=== PATIENT | female | born 1945 | race Caucasian/White ===

== ENCOUNTER 2020-12-24 10:41 | Outpatient (CLI) | payer BC | END 2020-12-24 10:42 | disposition home or self-care (01) | LOC: BICMAMMO 10:41 | PROVIDERS: ATTEND Internal Medicine | DX: Z12.31 Encounter for screening mammogram for malignant neoplasm of breast (principal) | CPT/HCPCS: 77063; 77067 ==

== ENCOUNTER 2022-10-12 07:55 | Outpatient (CLI) | payer BC | END 2022-10-12 07:56 | disposition home or self-care (01) | LOC: BICMAMMO 07:55 | PROVIDERS: ATTEND Internal Medicine | DX: Z12.31 Encounter for screening mammogram for malignant neoplasm of breast (principal) | CPT/HCPCS: 77063; 77067 ==

== ENCOUNTER 2023-10-25 08:25 | Outpatient (CLI) | payer BC | END 2023-10-25 08:26 | disposition home or self-care (01) | LOC: BICMAMMO 08:25 | PROVIDERS: ATTEND Internal Medicine | DX: Z12.31 Encounter for screening mammogram for malignant neoplasm of breast (principal); M85.851 Other specified disorders of bone density and structure, right thigh; M85.852 Other specified disorders of bone density and structure, left thigh | CPT/HCPCS: 77063; 77067; 77080 ==

== ENCOUNTER 2024-07-17 14:05 | Outpatient (CLI) | payer BC, MEDICARE | END 2024-07-17 14:06 | disposition home or self-care (01) | LOC: BICULT 14:05 | PROVIDERS: ATTEND Physician Assistant | DX: E04.2 Nontoxic multinodular goiter (principal) | CPT/HCPCS: 76536 ==

== ENCOUNTER 2024-08-13 08:01 | Emergency (ER) | payer MEDICARE, BC ==
[2024-08-13 08:36] LABS: #Basophils 0.05 10x3/uL (0.0-0.2); #Eosinophils Less than 0.03 10x3/uL (0.0-0.7); %Basophils 0.4 % (0.0-1.0); %Eosinophils 0.1 % (0.0-10.0); %Lymphocytes 8.3 % (21.0-51.0); %Monocytes 4.5 % (0.0-10.0); %Neutrophils 86.4 % (42.0-75.0); Hematocrit 42.6 % (36.0-47.0); Hemoglobin 14.4 g/dL (12.0-16.0); Mean Corpuscular HGB CONC 33.8 g/dL (32.0-36.0); Mean Corpuscular Hemoglobin 29.1 pg (27.0-31.0); Mean Corpuscular Volume 86.1 fL (78.0-98.0); Mean Platelet Volume 10.8 fL (7.4-10.4); Platelet Count 185 10x3/uL (130-400); RBC Distribution Width 12.6 % (11.5-14.5); Red Blood Cell (RBC) Count 4.95 mill/uL (4.20-5.40)
[2024-08-13] MEDS ORDERED: Famotidine/PF 20 mg/2ml Vial ONE (08:47)
[2024-08-13 09:00] LABS: Troponin I Less than 0.010 ng/mL (< 0.028)
[2024-08-13 09:10] LABS: ALT (SGPT) 32 U/L (8-55); AST (SGOT) 36 U/L (5-34); Albumin 4.6 g/dL (3.4-4.8); Alkaline Phosphatase 50 U/L (40-110); Anion Gap 17 mmol/L (10-20); BUN (Urea Nitrogen) 13 mg/dL (9.8-20.1); Bilirubin, Total 0.5 mg/dL (0.2-1.2); Calc. Creatinine Clearance 0 mL/min (70-130); Calcium 9.3 mg/dL (7.8-10.44); Carbon Dioxide 19 mmol/L (23-31); Chloride 101 mmol/L (98-107); Estimated GFR 79; Globulin 3.5 g/dL (2.4-3.5); Glucose 175 mg/dL (83-110); Lipase 14 U/L (8-78); Potassium 4.3 mmol/L (3.5-5.1); Protein, Total 8.1 g/dL (5.8-8.1); Sodium 133 mmol/L (136-145)
[2024-08-13] MEDS ORDERED: Morphine 4 MG/ML VIAL ONE (10:10)
[2024-08-13] MEDS ORDERED: Ondansetron PF 4 MG/2 ML Vial ONE (10:11)
[2024-08-13 11:12] LABS: Bacteria/HPF None Seen HPF (None Seen); Bilirubin Negative (Negative); Blood, Urine Negative (Negative); CAUTI Indications for Culture Acute Hematuria; Clarity Clear (Clear); Glucose, Urine (Dipstick) 50 mg/dL (Negative); Ketone, Urine Negative (Negative); Leukocyte Negative Leu/uL (Negative); Nitrite Negative (Negative); Protein, Urine (Dipstick) Negative (Neg-Trace); RBC/HPF 0-3 HPF (0-3); Specific Gravity, Urine 1.026 (1.002-1.036); Squamous Epithelial 0-3 HPF (0-3); Urobilinogen Normal mg/dL (Less than 2); WBC/HPF 0-3 HPF (0-3)
[2024-08-13 11:24] LABS: Urine Culture Reflex No No
[2024-08-13] MEDS ORDERED: Iopamidol-370 76% 500 ML MDV (1 ML CHARGE) ONE (15:21)
== END 2024-08-13 13:24 | disposition home or self-care (01) ==
LOC: ERS 08:01
DX: K80.20 Calculus of gallbladder without cholecystitis without obstruction (principal); K57.90 Diverticulosis of intestine, part unspecified, without perforation or abscess without bleeding; F17.290 Nicotine dependence, other tobacco product, uncomplicated; Z55.6 Problems related to health literacy
CPT/HCPCS: 74177; 76705; 80053; 81001; 83690; 84484; 85025; 93005; J2272; J2405; J3490; 36415; 96374; 96375; Q9967

== ENCOUNTER 2025-05-28 10:47 | Outpatient (CLI) | payer BC | END 2025-05-28 10:48 | disposition home or self-care (01) | LOC: BICMAMMO 10:47 | PROVIDERS: ATTEND Internal Medicine | DX: M85.89 Other specified disorders of bone density and structure, multiple sites (principal) | CPT/HCPCS: 77080 ==